=== PATIENT | female | born 1995 | race American Indian/Alaskan Native ===

== ENCOUNTER 2020-07-27 11:02 | Outpatient (CLI) | payer OTHER | END 2020-07-27 12:29 | disposition home or self-care (01) | LOC: LAB 11:02 → APU 11:03 → LAB 12:29 | PROVIDERS: ATTEND Obstetrics & Gynecology | DX: O26.893 Other specified pregnancy related conditions, third trimester (principal); O99.013 Anemia complicating pregnancy, third trimester; D64.9 Anemia, unspecified; O99.323 Drug use complicating pregnancy, third trimester; F12.90 Cannabis use, unspecified, uncomplicated; Z87.891 Personal history of nicotine dependence; Z3A.37 37 weeks gestation of pregnancy; Z67.11 Type A blood, Rh negative | CPT/HCPCS: 86850; 86900; 86901; 96372; J2790 ==

== ENCOUNTER 2020-07-30 21:08 | Outpatient (CLI) | payer OTHER ==
[2020-07-30 21:39] VITALS: BP 117/79
== END 2020-07-30 23:28 | disposition home or self-care (01) ==
LOC: TRG 21:08 → APU 21:09 → TRG 23:28
PROVIDERS: ATTEND Obstetrics & Gynecology
DX: O47.1 False labor at or after 37 completed weeks of gestation (principal); Z3A.37 37 weeks gestation of pregnancy
CPT/HCPCS: 59025

== ENCOUNTER 2020-08-18 04:56 | Outpatient (CLI) | payer OTHER ==
[2020-08-18 06:27] VITALS: BP 121/68
== END 2020-08-18 06:30 | disposition home or self-care (01) ==
LOC: TRG 04:56 → APU 05:10 → TRG 06:30
PROVIDERS: ATTEND Obstetrics & Gynecology
DX: O47.1 False labor at or after 37 completed weeks of gestation (principal); Z3A.40 40 weeks gestation of pregnancy
CPT/HCPCS: 59025